=== PATIENT | female | born 1935 | race Caucasian/White ===

== ENCOUNTER 2021-07-10 14:35 | Emergency (ER) | payer MEDICARE, SELFPAY ==
[2021-07-10 15:02] VITALS: BP 130/79; PULSE 76; RESP 18; TEMP 36.8; O2SAT 97
--- NOTE | 2021-07-10 15:47 | XRR_ITS ---
PROCEDURE INFORMATION: Exam: XR Right Knee Exam date and time: 07/10/2021 4:14 PM Age: 86 years old Clinical indication: Injury or trauma; Fall; Blunt trauma; Knee; Right; Additional info: Fall, pain TECHNIQUE: Imaging protocol: XR Right knee. Views: 3 views. COMPARISON: No relevant prior studies available. FINDINGS: Bones/joints: Meniscal chondrocalcinosis. Xtgy-hc-[id number] tricompartmental osteoarthritis of the knee. Soft tissues: Normal. XR/XR knee RT 3V* [id number] IMPRESSION: 1. Negative fracture or dislocation. 2. Meniscal chondrocalcinosis. 3. Tnrl-wj-wtgcjkbq tricompartmental osteoarthritis of the knee.
--- NOTE | 2021-07-10 16:10 | XRR_ITS ---
PROCEDURE INFORMATION: Exam: XR Right Femur Exam date and time: 07/10/2021 4:14 PM Age: 86 years old Clinical indication: Injury or trauma; Fall; Blunt trauma; Thigh or upper leg; Right TECHNIQUE: Imaging protocol: XR Right femur. Views: 2 views. COMPARISON: No relevant prior studies available. FINDINGS: Bones/joints: Severe right hip osteoarthritis with bony remodeling and loss of the joint space. Soft tissues: Unremarkable. XR/XR femur RT 1V [id number] IMPRESSION: Severe right hip osteoarthritis with bony remodeling and loss of the joint space.
--- NOTE | 2021-07-10 16:10 | XRR_ITS ---
PROCEDURE INFORMATION: Exam: XR Right Hip Exam date and time: 07/10/2021 4:14 PM Age: 86 years old Clinical indication: Injury or trauma; Fall; Blunt trauma (contusions or hematomas); Right; Hip; Additional info: Pain/injury TECHNIQUE: Imaging protocol: XR Right hip. Views: 1 view hip with pelvis when performed. COMPARISON: No relevant prior studies available. FINDINGS: Bones/joints: Severe right hip osteoarthritis with bony remodeling and loss of the joint space. Soft tissues: Unremarkable. XR/XR hip RT 2-3V wo/w pel* [id number] IMPRESSION: 1. Negative for fracture or dislocation. 2. Severe right hip osteoarthritis with bony remodeling and loss of the joint space.
--- NOTE | 2021-07-10 16:11 | ED_ITS ---
Documented by User: SILVIA Rocha 07/11/21 07:09 HPI - Extremity Problem General: Chief complaint: Extremity Injury, Lower Stated complaint: fall Time Seen by Provider: 07/10/21 15:54 Source: patient and family Mode of arrival: wheelchair Limitations: no limitations History of Present Illness: 86-year-old female comes in today for complaints of pain to the right lower extremity. Patient reports 2 weeks ago she had fallen and landed on her right knee causing some significant discomfort that resolved within 1 to 2 days. Patient reports then she got a virus which she had a little cough and congestion. Patient then noticed that she had increasing pain and discomfort to the right lower extremity. Patient reports that she was unable to get out of bed without assistance from a cane or walker. Patient on stated that she did have some mild improvement and was able to get out a bed with assistance. Since then patient has had no further improvement. Pat shreyas takes no routine medications except [id number] Osteo Bi-Flex and occasionally Aleve. Patient did report prior injury about 3 years ago to the same extremity. Denies any fractures or surgeries to the extremity. Patient is an 86-year-old female who presents to ED today with her niece for concerns of right knee and hip pain. Patient tells me she initially injured her knee 3 years ago and has felt like she has had issues with it since. She states 2 weeks ago she accidentally tripped and fell directly onto the knee and since then has had difficulty with ambulation. She states she is not able to walk unless she is using a cane, walker, crutch, etc. Patient has not noticed any significant swelling. She has not noticed any redness, warmth, color/temperature changes to her lower extremity. She denies numbness, tingling, loss of sensation. Patient states when she tries to ambulate most of her pain is localized to her knee and lateral thigh. Course Vital Signs: Vital signs: Vital Signs Temperature 98.3 F 07/10/21 15:02 Pulse Rate 76 07/10/21 15:02 Respiratory Rate 16 07/10/21 17:32 Blood Pressure 130/79 07/10/21 15:02 Pulse Oximetry 97 07/10/21 15:02 MDM - Extremity (Nontraumatic) Medical Decision Making 86-year-old female comes in today for evaluation of right lower extremity pain after a fall 2 weeks ago. On exam patient has good range of motion of the right knee. She has decreased range of motion of the hip and pain that radiates from the hip to the knee. Differential diagnosis includes not limited to fracture of the hip, knee injury, arthritis. X-ray of the hip and knee indicated significant arthritis to the right hip with bone remodeling, and osteoarthritis of the knee. CT of the hip was performed and noted no acute injury. Patient was written prescription for medications to help with pain control and case management will assist with set up for orthopedic follow-up for further evaluation and consideration of surgical intervention as patient has severe arthritis in the hip and may need a replacement of the hip. Pasquale that is with patient request to be contacted during the assistance of follow-up appointment scheduling. Patient was initially seen/assessed by myself. X-rays of her hip, femur, knee were obtained. On physical exam she did have quite a bit of discomfort to her hip and x-ray showed severe osteoarthritis. Discussed these with Dr. Sexton and due to the possibility of an occult hip fracture would be easily missed due to her bony remodeling he recommended proceeding with CT imaging. Care is transferred to [facility] pending this study. Lab Data Radiology Impressions Knee X-Ray 07/10/21 15:47 IMPRESSION: 1. Negative fracture or dislocation. 2. Meniscal chondrocalcinosis. 3. Wxai-ri-unekrtoj tricompartmental osteoarthritis of the knee. Femur X-Ray 07/10/21 16:10 IMPRESSION: Severe right hip osteoarthritis with bony remodeling and loss of the joint space. Hip/Pelvis X-Ray 07/10/21 16:10 IMPRESSION: 1. Negative for fracture or dislocation. 2. Severe right hip osteoarthritis with bony remodeling and loss of the joint space. Hip CT 07/10/21 17:06 IMPRESSION: 1. Negative for fracture or dislocation 2. Severe right hip joint space narrowing with bony remodeling. Discharge Plan Discharge Patient Disposition: Home Clinical Impression: Osteoarthrosis, hip Condition: Stable Prescriptions: New hydrocodone-acetaminophen 5-325 mg tablet 1 tab PO Q8H PRN (Reason: pain (scale score 7-10)) Qty: 10 0RF Discharge Orders: Discharge ED (Routine); Ordered 07/10/21 Ordered By: [facility] [place] Discharge Diet: Usual diet Discharge Activity: Increase activity as tolerated and Use walker/crutches as instructed Patient Instructions: Osteoarthritis (ED), Opioid Safety Activity Restrictions/Additional Instructions: Use acetaminophen and Aleve to help control pain. Use hydrocodone for severe pain. Increase activity as tolerated. Use a walker until you can bear weight comfortably on the hip. Case management will contact you regarding follow-up appointment with orthopedist. Return to ER for worsening symptoms or new concerns. Coding Level of Care Code ED Family Support Specialist for Chg Fwd Exam Comprehensive Documented by User: TONI Singh 07/10/21 18:27 HPI - Extremity Problem General: Chief complaint: Extremity Injury, Lower Stated complaint: fall Time Seen by Provider: 07/10/21 15:54 History of Present Illness: 86-year-old female comes in today for complaints of pain to the right lower extremity. Patient reports 2 weeks ago she had fallen and landed on her right knee causing some significant discomfort that resolved within 1 to 2 days. Patient reports then she got a virus which she had a little cough and congestion. Patient then noticed that she had increasing pain and discomfort to the right lower extremity. Patient reports that she was unable to get out of bed without assistance from a cane or walker. Patient on stated that she did have some mild improvement and was able to get out a bed with assistance. Since then patient has had no further improvement. Patient takes no routine medications except [id number] Osteo Bi-Flex and occasionally Aleve. Patient did report prior injury about 3 years ago to the same extremity. Denies any fractures or surgeries to the extremity. MD Complaint: extremity pain Onset (ago): week(s) Pain Consistency: intermittent Location: lower extremity (right upper leg) Quality: aching Radiation: distal Relieving factors: rest Exacerbating factors: weight bearing Associated symptoms: Deny chest pain or rash Review of Systems General: Reports: 10 or more systems reviewed and unremarkable except in HPI and below Card: Denies: chest pain Resp: Denies: dyspnea Musc: Reports: extremity pain Skin/Breast: Denies: rash Physical Exam Const: COMMON NORMALS: alert HENMT: MOUTH: Normal oral and palatal mucosa present Neck/C-Spine: COMMON NORMALS: full ROM Resp: COMMON NORMALS: normal respiratory effort and clear to auscultation bilaterally AUSCULTATION: clear to auscultation bilaterally Cardio: COMMON NORMALS: regular rate and regular rhythm RATE: regular rate RHYTHM: regular rhythm GI: COMMON NORMALS: Soft to palpation and non-tender PALPATION: Yes Soft to palpation : COMMON NORMALS: Yes no CVA tenderness BLADDER/KIDNEY EXAM: Yes no CVA tenderness Back/Pelvis: COMMON NORMALS: no CVA tenderness THORACIC SPINE/UPPER BACK: No thoracic spinal tenderness LUMBAR SPINE/LOWER BACK: No lumbar spinal tenderness and Yes paraspinal muscle tenderness Extremity: RIGHT LOWER EXTREMITY: Yes hip joint (Pain with movement) Right hip: Yes inspection and Yes palpation and Yes knee joint (No pain elicited with range of motion no swelling or redness) Right knee: Yes inspection, Yes palpation, Yes ROM and Yes neurovascular exam Neuro: SENSORIUM/ORIENTATION: Yes alert Psych: COMMON NORMALS: cooperative Skin: COMMON NORMALS: no wounds Course Vital Signs: Vital signs: Vital Signs Temperature 98.3 F 07/10/21 15:02 Pulse Rate 76 07/10/21 15:02 Respiratory Rate 16 07/10/21 17:32 Blood Pressure 130/79 07/10/21 15:02 Pulse Oximetry 97 07/10/21 15:02 MDM - Extremity (Nontraumatic) Medical Decision Making 86-year-old female comes in today for evaluation of right lower extremity pain a fter a fall 2 weeks ago. On exam patient has good range of motion of the right knee. She has decreased range of motion of the hip and pain that radiates from the hip to the knee. Differential diagnosis includes not limited to fracture of the hip, knee injury, arthritis. X-ray of the hip and knee indicated significant arthritis to the right hip with bone remodeling, and osteoarthritis of the knee. CT of the hip was performed and noted no acute injury. Patient was written prescription for medications to help with pain control and case management will assist with set up for orthopedic follow-up for further evaluation and consideration of surgical intervention as patient has severe arthritis in the hip and may need a replacement of the hip. Pasquale that is with patient request to be contacted during the assistance of follow-up appointment scheduling. Lab Data Radiology Impressions Knee X-Ray 07/10/21 15:47 IMPRESSION: 1. Negative fracture or dislocation. 2. Meniscal chondrocalcinosis. 3. Rzrj-fx-xtqgrprt tricompartmental osteoarthritis of the knee. Femur X-Ray 07/10/21 16:10 IMPRESSION: Severe right hip osteoarthritis with bony remodeling and loss of the joint space. Hip/Pelvis X-Ray 07/10/21 16:10 IMPRESSION: 1. Negative for fracture or dislocation. 2. Severe right hip osteoarthritis with bony remodeling and loss of the joint space. Hip CT 07/10/21 17:06 IMPRESSION: 1. Negative for fracture or dislocation 2. Severe right hip joint space narrowing with bony remodeling. Discharge Plan Discharge Patient Disposition: Home Clinical Impression: Osteoarthrosis, hip Condition: Stable Prescriptions: New hydrocodone-acetaminophen 5-325 mg tablet 1 tab PO Q8H PRN (Reason: pain (scale score 7-10)) Qty: 10 0RF Discharge Orders: Discharge ED (Routine); Ordered 07/10/21 Ordered By: [facility] [place] Discharge Diet: Usual diet Discharge Activity: Increase activity as tolerated and Use walker/crutches as instructed Patient Instructions: Osteoarthritis (ED), Opioid Safety Activity Restrictions/Additional Instructions: Use acetaminophen and Aleve to help control pain. Use hydrocodone for severe pain. Increase activity as tolerated. Use a walker until you can bear weight comfortably on the hip. Case management will contact you regarding follow-up appointment with orthopedist. Return to ER for worsening symptoms or new concerns. Coding Level of Care Code ED Family Support Specialist for Chg Fwd Exam Comprehensive Documented by User: Pablo Sexton DO 07/13/21 08:23 HPI - Extremity Problem General: Chief complaint: Extremity Injury, Lower Stated complaint: fall Time Seen by Provider: 07/10/21 15:54 Course Vital Signs: Vital signs: Vital Signs Temperature 98.3 F 07/10/21 15:02 Pulse Rate 76 07/10/21 15:02 Respiratory Rate 16 07/10/21 17:32 Blood Pressure 130/79 07/10/21 15:02 Pulse Oximetry 97 07/10/21 15:02 MDM - Extremity (Nontraumatic) Medical Decision Making 86-year-old female comes in today for evaluation of right lower extremity pain after a fall 2 weeks ago. On exam patient has good range of motion of the right knee. She has decreased range of motion of the hip and pain that radiates from the hip to the knee. Differential diagnosis includes not limited to fracture of the hip, knee injury, arthritis. X-ray of the hip and knee indicated significant arthritis to the right hip with bone remodeling, and osteoarthritis of the knee. CT of the hip was performed and noted no acute injury. Patient was written prescription for medications to help with pain control and case management will assist with set up for orthopedic follow-up for further evaluation and consideration of surgical intervention as patient has severe arthritis in the hip and may need a replacement of the hip. Pasquale that is with patient request to be contacted during the assistance of follow-up appointment scheduling. Patient was initially seen/assessed by myself. X-rays of her hip, femur, knee were obtained. On physical exam she did have quite a bit of discomfort to her hip and x-ray showed severe osteoarthritis. Discussed these with Dr. Sexton and due to the possibility of an occult hip fracture would be easily missed due to her bony remodeling he recommended proceeding with CT imaging. Care is transferred to [facility] pending this study. Chart reviewed and patient discussed with midlevel. Agree with assessment and plan. Medical Records I reviewed the patient's medical records. Lab Data I reviewed the patient's lab results. Radiology Impressions Knee X-Ray 07/10/21 15:47 IMPRESSION: 1. Negative fracture or dislocation. 2. Meniscal chondrocalcinosis. 3. Betq-gf-pfavmexq tricompartmental osteoarthritis of the knee. Femur X-Ray 07/10/21 16:10 IMPRESSION: Severe right hip osteoarthritis with bony remodeling and loss of the joint space. Hip/Pelvis X-Ray 07/10/21 16:10 IMPRESSION: 1. Negative for fracture or dislocation. 2. Severe right hip osteoarthritis with bony remodeling and loss of the joint space. Hip CT 07/10/21 17:06 IMPRESSION: 1. Negative for fracture or dislocation 2. Severe right hip joint space narrowing with bony remodeling. Discharge Plan Discharge Patient Disposition: Home Clinical Impression: Osteoarthrosis, hip Condition: Stable Prescriptions: New hydrocodone-acetaminophen 5-325 mg tablet 1 tab PO Q8H PRN (Reason: pain (scale score 7-10)) Qty: 10 0RF Discharge Orders: Discharge ED (Routine); Ordered 07/10/21 Ordered By: [facility] [place] Discharge Diet: Usual diet Discharge Activity: Increase activity as tolerated and Use walker/crutches as instructed Patient Instructions: Osteoarthritis (ED), Opioid Safety Activity Restrictions/Additional Instructions: Use acetaminophen and Aleve to help control pain. Use hydrocodone for severe pain. Increase activity as tolerated. Use a walker until you can bear weight comfortably on the hip. Case management will contact you regarding follow-up appointment with orthopedist. Return to ER for worsening symptoms or new concerns. Coding Level of Care Code ED Family Support Specialist for Mary Fwd Exam Comprehensive
--- NOTE | 2021-07-10 17:06 | CTR_ITS ---
PROCEDURE INFORMATION: Exam: CT Right Lower Extremity Without Contrast, Hip Exam date and time: 07/10/2021 5:41 PM Age: 86 years old Clinical indication: Injury or trauma; Blunt trauma; Right; Patient HX: C/O R hip pain and difficulty ambulating after fall; Additional info: Fall, pain; Trouble ambulating TECHNIQUE: Imaging protocol: CT of the Right lower extremity without contrast was performed. Exam focused on the hip. Radiation optimization: All CT scans at this facility use at least one of these dose optimization techniques: automated exposure control; mA and/or kV adjustment per patient size (includes targeted exams where dose is matched to clinical indication); or iterative reconstruction. COMPARISON: CR (PELVIS, ) 07/10/2021 4:14 PM RADIATION DOSE METRICS: Total DLP (mGy-cm): 483.58 FINDINGS: Bones/joints: Severe right hip joint space narrowing with bony remodeling. Soft tissues: Normal. CT/CT hip RT wo con* [id number] IMPRESSION: 1. Negative for fracture or dislocation 2. Severe right hip joint space narrowing with bony remodeling.
[2021-07-10 17:32] VITALS: RESP 16
[2021-07-10] MEDS: morphine 4 mg/mL SDV 1 mL IM (17:32)
--- NOTE | 2021-07-12 09:30 | DCPLANNER ---
Addendum entered by Anastasiia Mcgarry 08/11/21 09:50: Patient had a follow up appointment scheduled with ortho - patient did not attend appointment. Addendum entered by Anastasiia Mcgarry 07/13/21 07:08: Patient has a follow up appointment scheduled for Monday, August 04, 2021 at 1:[address] Khan at ortho. Clinic will call patient with appointment information. Original Note: manager massage department had message to schedule a follow up appointment for patient with ortho. manager massage department sent patients information to the ortho front staff for follow up thru [employer] task/message system. Patients information will be printed and reviewed. Clinic will call patient with appointment information.
== END 2021-07-10 18:18 | disposition home or self-care (01) ==
PROVIDERS: Emergency Provider Nurse Practitioner Family
DX: M16.11 Unilateral primary osteoarthritis, right hip (principal)
CPT/HCPCS: 73502; 73551; 73562; 73700; 96372; 99283; J2270